=== PATIENT | male | born 1970 | race Caucasian/White ===

== ENCOUNTER 2021-04-18 17:40 | Emergency (ER) | payer BC, OTHER ==
[~2021-04-18] VITALS: Ht 170.2 cm; Wt 98.0 kg
--- NOTE | 2021-04-18 18:17 | REP ---
INDICATION: fall. COMPARISON: None. TECHNIQUE: Four views of the left ankle. FINDINGS: Four views of the left ankle demonstrate soft tissue swelling in the distal calf. Ankle mortise is intact. No fracture or subluxation is seen. There is a plantar calcaneal spur. IMPRESSION: No fracture seen. Distal calf soft tissue swelling. <Electronically signed by Osmany Bentley > 04/18/21 [id number]
--- NOTE | 2021-04-18 18:18 | REP ---
INDICATION: trauma. COMPARISON: None. TECHNIQUE: Four views of the left foot. FINDINGS: Four views of the left foot demonstrate osteoarthritic spurring and joint space narrowing at the MTP joint of the great toe. There is plantar heel spurring. No fracture or subluxation is seen. No opaque foreign body noted. IMPRESSION: Plantar heel spur. First MTP joint osteoarthritic spurring. No acute bony abnormality. <Electronically signed by Osmany Bentley > 04/18/21 [id number]
[2021-04-18] MEDS ORDERED: COLCHICINE 0.6 MG TABLET PO ONE ×2 (20:25→20:30)
[2021-04-18] MEDS ORDERED: NAPR-837 PO (20:28)
[2021-04-18 20:38] VITALS: BP 148/87
== END 2021-04-18 21:03 | disposition home or self-care (01) ==
LOC: M ED 17:40
DX: S93.402A Sprain of unspecified ligament of left ankle, initial encounter (principal); W10.8XXA Fall (on) (from) other stairs and steps, initial encounter; Y92.009 Unspecified place in unspecified non-institutional (private) residence as the place of occurrence of the external cause; Y93.9 Activity, unspecified; Y99.9 Unspecified external cause status; M10.072 Idiopathic gout, left ankle and foot